=== PATIENT | female | born 2000 | race Caucasian/White ===

== ENCOUNTER 2022-08-01 08:15 | Outpatient (RCR) | payer OTHER, SELFPAY | END 2022-08-01 10:30 | disposition home or self-care (01) | PROVIDERS: Visit Provider Physician Assistant | DX: M54.2 Cervicalgia (principal); M54.40 Lumbago with sciatica, unspecified side; Z51.89 Encounter for other specified aftercare | CPT/HCPCS: 97110; 97112; 97140; 97161 ==